=== PATIENT | female | born 1955 | race African-American/Black ===

== ENCOUNTER → 2016-12-31 | Outpatient (CLI) | payer MEDICARE, BC | LOC: OD 15:54 | PROVIDERS: ATTEND Physician Assistant | DX: G43.909 Migraine, unspecified, not intractable, without status migrainosus (principal); G89.29 Other chronic pain | CPT/HCPCS: 72040 ==

== ENCOUNTER → 2017-02-18 | Outpatient (CLI) | payer MEDICARE, BC | LOC: RAD 09:18 | PROVIDERS: ATTEND Physician Assistant | DX: M54.2 Cervicalgia (principal); M54.5 Low back pain; M79.2 Neuralgia and neuritis, unspecified | CPT/HCPCS: 72141; 72146; 72148 ==

== ENCOUNTER → 2018-01-20 | Outpatient (CLI) | payer MEDICARE, BC ==
--- NOTE | 2018-01-20 12:39 | RADIOLOGY REPORT (SQ) ---
EXAM DESCRIPTION: U/S NON-OB PELVIS TV W/O DOP COMPLETED DATE/TIME: 01/20/2018 10:40 am REASON FOR STUDY: ABDOMINAL PAIN R10.31 RIGHT LOWER QUADRANT PAIN COMPARISON: None. TECHNIQUE: Dynamic and static grayscale images acquired of the pelvis via transvaginal approach and recorded on PACS. Additional selected color Doppler and spectral images recorded. LIMITATIONS: None. FINDINGS: UTERUS: Surgically absent. No regional mass detected. RIGHT OVARY: Not seen. LEFT OVARY: Not seen. FREE FLUID: None noted. OTHER: No other significant finding. IMPRESSION: Status post hysterectomy. No pelvic mass. Ovaries not identified. TECHNICAL DOCUMENTATION: JOB ID: [id number] [employer]- All Rights Reserved Reading location - IP/workstation name: [email or web address]
== END ==
LOC: RAD 09:54
PROVIDERS: ATTEND Physician Assistant
DX: R10.31 Right lower quadrant pain (principal); Z90.710 Acquired absence of both cervix and uterus
CPT/HCPCS: 76830

== ENCOUNTER → 2018-09-13 | Outpatient (CLI) | payer MEDICARE, BC ==
--- NOTE | 2018-09-13 16:42 | WOMENS IMAGING REPORT ---
EXAM DESCRIPTION: 3D SCREENING MAMMO BILAT COMPLETED DATE/TIME: 09/13/2018 1:43 pm REASON FOR STUDY: BILATERAL SCREENING MAMMO 3D/Z12.31 Z12.31 ENCNTR SCREEN MAMMOGRAM FOR MALIGNANT NEOPLASM OF PAULA COMPARISON: 09/10/2017 and 09/09/2016. TECHNIQUE: Standard craniocaudal and mediolateral oblique views of each breast recorded using digita l acquisition and breast tomosynthesis. LIMITATIONS: None. FINDINGS: No masses, calcifications or architectural distortion. No areas of suspicion. Read with the assistance of CAD. .[facility] - R2 Cenova Version 1.3 .[facility] - R2 Cenova Version 1.3 .[facility] - R2 Cenova Version 2.4 .[facility] - R2 Cenova Version 2.4 .[facility] - R2 [employer] Version 9.2 IMPRESSION: NORMAL MAMMOGRAM. BIRADS 1. BREAST DENSITY: c. The breasts are heterogeneously dense, which may obscure small masses. BIRAD: 1 NEGATIVE RECOMMENDATION: ROUTINE SCREENING COMMENT: The patient has been notified of the results by letter per SA requirements. Additional no tification policies are in place for contacting patient with suspicious or incomplete findings. Quality ID #[id number]: The [employer] recommends an annual screening mammogram for women aged 40 years or over. This facility utilizes a reminder system to ensure that all patients receive reminder letters, and/or direct phone calls for appointments. This includes reminders for routine scr eening mammograms, diagnostic mammograms, or other Breast Imaging Interventions when appropriate. Th is patient will be placed in the appropriate reminder system. The [employer] (ACR) has developed recommendations for screening MRI of the breast s in certain patient populations, to be used in conjunction with mammography. Breast MRI surveillanc e may be appropriate for women with more than 20% lifetime risk of developing breast cancer as deter mined by genetic testing, significant family history of the disease, or history of mantle radiation f or Hodgkins Disease. ACR Practice Guidelines 2008. DBT Technology DBT is a type of tomographic mammography. With conventional mammography, overlapping breast tissue ma y make lesions difficult to detect, even with good compression. DBT uses an x-ray tube that rotates a round the breast, taking images at different angles. These images are then combined to create thin sl ices of the breast that the radiologist can view as a 3D reconstruction. The [employer] unit can perform full-field digital mammograms (2D imaging); or DBT (3D imaging); or both, in a combination mode that quickly performs both the mammogram and the tomosynthesis scan while the breast is still compressed. PQRS 6045F: Fluoroscopic imaging is not utilized for breast tomosynthesis. TECHNICAL DOCUMENTATION: FINDING NUMBER: (1) ASSESSMENT: (1) JOB ID: [id number] [employer]- All Rights Reserved Reading location - IP/workstation name: [email or web address]
== END ==
LOC: WI 13:16
PROVIDERS: ATTEND Physician Assistant
DX: Z12.31 Encounter for screening mammogram for malignant neoplasm of breast (principal)
CPT/HCPCS: 77063; 77067

== ENCOUNTER 2019-03-25 03:37 | Inpatient (IN) | payer MEDICARE, BC, OTHER ==
--- NOTE | 2019-03-25 03:56 | ER Document Report ---
ED General - General Stated Complaint: ALTERED MENTAL STATUS Time Seen by Provider: 03/25/19 03:45 Primary Care Provider: JAIRON LABOY PA [PHYSICIAN ORGAN INSTALLER] - Follow up as needed Notes: Patient is a 63-year-old female that comes to complaint of altered mental status. states they went to bed at 1 AM, shortly after this patient got up to go to the bathroom and then began to become confused and agitated, she was stating that the "furniture in the living room was missing" although it was not, she started repeating questions and became tearful. She has remained confused since that time although she still is alert and is following all directions. She does report a headache, she states it is on the right side behind her eye and coming around to the back. She was found to have an initial blood pressure of 220/110, she was given Zofran 4 mg and clonidine 0.2 mg by EMS in route. She has a history of hypertension (on lisinopril), denies other medical problems. Has been is at bedside. She is not on a blood thinner. He denies a fall injury, he states she was normal before hand without any sick symptoms including fever. TRAVEL OUTSIDE OF THE [place] IN LAST 30 DAYS: No - Related Data Allergies/Adverse Reactions: codeine Allergy (Verified 03/25/19 04:46) Sulfa (Sulfonamide Antibiotics) Allergy (Verified 03/25/19 04:46) Past Medical History - General Information source: Patient, Relative, Emergency Med Personnel - Social History Smoking Status: Never Smoker Frequency of alcohol use: None Drug Abuse: None Lives with: Family Family History: Reviewed & Not Pertinent - Past Medical History Cardiac Medical History: Reports: Hx Hypertension GI Medical History: Reports: Hx Gastroesophageal Reflux Disease Review of Systems - Review of Systems Constitutional: No symptoms reported EENT: No symptoms reported Cardiovascular: No symptoms reported Respiratory: No symptoms reported Gastrointestinal: No symptoms reported Genitourinary: No symptoms reported Female Genitourinary: No symptoms reported Musculoskeletal: No symptoms reported Skin: No symptoms reported Hematologic/Lymphatic: No symptoms reported Neurological/Psychological: See HPI Physical Exam - Vital signs Vitals: Resp BP Pulse Ox 20 203/180 H 91 L 03/25/19 04:02 03/25/19 04:02 03/25/19 04:02 - Notes Notes: GENERAL: Alert, interacts well. HEAD: Normocephalic, atraumatic. EYES: Pupils equal, round, and reactive to light. Extraocular movements intact. ENT: Oral mucosa moist, tongue midline. Oropharynx unremarkable. Airway patent. NECK: Full range of motion. Supple. Trachea midline. LUNGS: Clear to auscultation bilaterally, no wheezes, rales, or rhonchi. No resp iratory distress. HEART: Regular rate and rhythm. No murmur ABDOMEN: Soft, non-tender. Non-distended. Bowel sounds present in all 4 quadrants. GENITOURINARY: Deferred EXTREMITIES: Moves all 4 extremities spontaneously. No edema, normal radial and dorsalis pedis pulses bilaterally. No cyanosis. BACK: no cervical, thoracic, lumbar midline tenderness. No saddle anesthesia, normal distal neurovascular exam. NEUROLOGICAL: Alert but disoriented. Normal speech. Cranial nerves II through XII grossly intact. PSYCH: Normal affect, normal mood. SKIN: Warm, dry, normal turgor. No rashes or lesions noted. Course - Re-evaluation Re-evalutation: 03/25/19 03:56 Patient's physical exam is unremarkable, she does complain of a headache, she does keep asking the same questions, she fails her orientation questions, otherwise her neurological exam is normal. She is very hypertensive. Concern is for intracranial hemorrhage, possible hypertensive encephalopathy, patient immediately was sent for a CAT scan of the head. clarifies, he states that after they went to bed they had sexual intercourse, afterwards she got up to go to the bathroom and then started acting confused. Blood pressure down trended rapidly with after the clonidine given by EMS, into the 190s, 180s, and now 150s. Patient reevaluated again, still cannot recall year, president, but is not naming family members and following all other directions appropriately. Slightly improved. Headache is almost gone. Patient reevaluated again, blood pressures in the 140s now. Patient is not telling me the president, the year, and is oriented except for details of earlier this evening. Patient has no dementia at baseline per family. CT of the head does not show intracranial hemorrhage, chest x-ray unremarkable. CBC, chemistry unremarkable. Troponin is negative. Urinalysis unremarkable. Clinical presentation is most suggestive of hypertensive emergency with encephalopathy from the hypertension. 03/25/19 05:[address] Morales, he recommends CTA of the head and neck, small evaluation. To see what her blood pressure does next, if it comes back up precipitously she may require Cardene drip and ICU admission. 03/25/19 06:13 Unfortunately after the clonidine patient continued to downtrend, blood pressure reached 108 systolic, she was given 500 cc fluid bolus. 03/25/19 06:57 Patient's blood pressure has now stabilized, she will be admitted to the IMCU. - Vital Signs Vital signs: Temp Pulse Resp BP Pulse Ox 62 13 140/66 H 96 03/25/19 04:27 03/25/19 06:46 03/25/19 06:46 03/25/19 06:46 - Laboratory Result Diagrams: 03/25/19 03:48 03/25/19 03:48 Laboratory results interpreted by me: 03/25/19 03/25/19 03:48 04:08 Glucose 115 H Urine Blood SMALL H Ur Leukocyte Esterase TRACE H Discharge - Discharge Clinical Impression: Hypertensive emergency Altered mental status Qualifiers: Altered mental status type: unspecified Qualified Code(s): R41.82 - Altered mental status, unspecified Headache Qualifiers: Headache type: unspecified Headache chronicity pattern: acute headache Intractability: not intractable Qualified Code(s): R51 - Headache Condition: Serious Disposition: ADMITTED INPATIENT Admitting Provider: Andrew Unit Admitted: [facility] Referrals: JAIRON LABOY PA [PHYSICIAN ORGAN INSTALLER] - Follow up as needed
[2019-03-25 03:58] LABS: ABSOLUTE BASOPHILS # (AUTO) 0.1 10^3/uL (0.0-0.2); ABSOLUTE EOSINOPHILS # (AUTO) 0.2 10^3/uL (0.0-0.6); ABSOLUTE LYMPHOCYTES (AUTO) 2.6 10^3/uL (0.5-4.7); ABSOLUTE MONOCYTES (AUTO) 0.5 10^3/uL (0.1-1.4); BASOPHILS % (AUTO) 1.1 % (0-2); EOSINOPHILS % (AUTO) 3.2 % (0-6); HEMATOCRIT 38.7 % (36.0-47.0); HEMOGLOBIN 13.1 g/dL (12.0-15.5); LYMPHOCYTES % (AUTO) 35.4 % (13-45); MEAN CORPUSCULAR HEMOGLOBIN 30.3 pg (27.0-33.4); MEAN CORPUSCULAR HGB CONC 33.8 g/dL (32.0-36.0); MEAN CORPUSCULAR VOLUME 90 fl (80-97); MONOCYTES % (AUTO) 6.2 % (3-13); PLATELET COUNT 220 10^3/uL (150-450); RED BLOOD COUNT 4.33 10^6/uL (3.72-5.28); SEGMENTED NEUTROPHILS % (AUTO) 54.1 % (42-78); TOTAL CELLS COUNTED % (AUTO) 100 %; WHITE BLOOD COUNT 7.5 10^3/uL (4.0-10.5)
[2019-03-25 04:06] LABS: INTERNATIONAL RATION (INR) 0.87; PROTHROMBIN TIME 12.3 SEC (11.4-15.4)
[2019-03-25 04:19] LABS: ALANINE AMINOTRANSFERASE 25 U/L (9-52); ALBUMIN 4.7 g/dL (3.5-5.0); ALKALINE PHOSPHATASE 113 U/L (38-126); ANION GAP 11 (5-19); ASPARTATE AMINO TRANSFERASE 24 U/L (14-36); BILIRUBIN,DIRECT 0.3 mg/dL (0.0-0.4); BILIRUBIN,TOTAL 0.4 mg/dL (0.2-1.3); BLOOD UREA NITROGEN 9 mg/dL (7-20); CALCIUM 10.1 mg/dL (8.4-10.2); CARBON DIOXIDE 27 mmol/L (22-30); CHLORIDE 106 mmol/L (98-107); GLUCOSE 115 mg/dL (75-110); POTASSIUM 3.9 mmol/L (3.6-5.0); SODIUM 143.9 mmol/L (137-145); TOTAL PROTEIN 7.6 g/dL (6.3-8.2)
--- NOTE | 2019-03-25 04:28 | RADIOLOGY REPORT (SQ) ---
CT head without contrast on 03/25/2019 at 3:53 AM CLINICAL INDICATION: Hypertension, headache, confusion TECHNIQUE: Multiple axial images are obtained throughout the head without the administration of contrast. This exam was performed according to our departmental dose-optimization program, which includes automated exposure control, adjustment of the mA and/or kV according to patient size and/or use of iterative reconstruction technique. Total DLP is 990.56 mGy*cm. COMPARISON: None FINDINGS: There is no hydrocephalus. There is no CT evidence of acute infarct. There is no hemorrhage. There are no abnormal extra-axial fluid collections. There is no mass, mass effect or midline shift. There is an old fracture of the posterior wall of the right maxillary sinus. No acute bony abnormality is noted. IMPRESSION: No acute intracranial abnormality.
--- NOTE | 2019-03-25 04:34 | RADIOLOGY REPORT (SQ) ---
CLINICAL HISTORY: AMS COMPARISON: None. TECHNIQUE: XR CHEST 1 VIEW 03/25/2019 3:50 AM CDT FINDINGS: Cardiac silhouette is normal in size. Lungs are clear without consolidation, atelectasis, mass or edema. There is no pleural effusion. There is no pneumothorax. There are no acute osseous findings. IMPRESSION: Clear lungs.
[2019-03-25 04:41] LABS: APPEARANCE,URINE CLEAR; BILIRUBIN,URINE NEGATIVE (NEGATIVE); COLOR,URINE STRAW; GLUCOSE, URINE NEGATIVE (NEGATIVE); KETONES,URINE NEGATIVE (NEGATIVE); LEUKOCYTE ESTERASE,URINE TRACE (NEGATIVE); NITRITE,URINE NEGATIVE (NEGATIVE); PROTEIN,URINE NEGATIVE (NEGATIVE); URINE SPECIFIC GRAVITY 1.003; UROBILINOGEN,URINE NEGATIVE mg/dL (<2.0)
--- NOTE | 2019-03-25 05:40 | RADIOLOGY REPORT (SQ) ---
CLINICAL HISTORY: AMS COMPARISON: None. TECHNIQUE: CT NECK ANGIOGRAPHY WITHOUT THEN WITH IV CONTRAST, CT HEAD ANGIOGRAPHY WITHOUT THEN WITH IV CONTRAST on 03/25/2019 4:57 AM CDT This exam was performed according to our departmental dose-optimization program, which includes automated exposure control, adjustment of the mA and/or kV according to patient size and/or use of iterative reconstruction technique. MIP reconstructions were generated. Stenoses are calculated by NASCET criteria. FINDINGS: Bilateral common carotid arteries are unremarkable. Internal carotid arteries are diffusely patent. Extracranial vertebral arteries are normal. Intracranial vertebral basilar system is unremarkable. Bilateral posterior cerebral arteries are normal. Anterior and middle cerebral arteries are unremarkable as well. IMPRESSION: Unremarkable CT angiogram.
[2019-03-25] MEDS ORDERED: NORMAL SALINE 1000 ML 500 ML IV ONE (06:14)
[2019-03-25] MEDS ORDERED: ACETAMINOPHEN 325 MG TABLET PO PRN (06:35)
[2019-03-25 08:09] LABS: URINE AMPHETAMINES SCREEN NEGATIVE; URINE BARBITURATES SCREEN NEGATIVE; URINE BENZODIAZEPINES SCREEN NEGATIVE; URINE COCAINE SCREEN NEGATIVE; URINE MARIJUANA (THC) SCREEN NEGATIVE; URINE METHADONE SCREEN NEGATIVE; URINE PHENCYCLIDINE SCREEN NEGATIVE
--- NOTE | 2019-03-25 10:12 | RADIOLOGY REPORT (SQ) ---
EXAM DESCRIPTION: MRI HEAD WITHOUT COMPLETED DATE/TIME: 03/25/2019 9:41 am REASON FOR STUDY: ams/s/ostroke COMPARISON: None CT angio brain 03/25/2019 CT angio neck 03/25/2019 CT brain 03/25/2019 TECHNIQUE: Multiplanar imaging includes non-contrasted T1, T2, FLAIR, and diffusion with ADC map seq uences. Images stored on PACS. LIMITATIONS: None. FINDINGS: ANATOMY: No anomalies. Normal vascular flow voids. Pituitary fossa normal. CSF SPACES: Normal in size and contour. No hemorrhage. CEREBRUM: No MR evidence of acute ischemic change, acute intracranial hemorrhage, mass effect, or mid line shift. Small focus of increased FLAIR/ T2 signal in the left parietal region. Punctate foci of increased FL AIR/ T2 signal in the left frontal lobe. These are nonspecific and could represent minimal small ves yue ischemic change. Demyelinating disease could not entirely be excluded. POSTERIOR FOSSA: No signal alteration. No hemorrhage. No edema, masses or mass effect. Internal josué tory canals, cerebello-pontine angles, mastoids normal. DIFFUSION IMAGING: Negative for acute or sub-acute infarction. ORBITS: No masses. Post left cataract surgery. PARANASAL SINUSES: No fluid levels. Mucosa normal. OTHER: No other significant finding. IMPRESSION: No MR evidence of acute stroke EVIDENCE OF ACUTE STROKE: NO. TECHNICAL DOCUMENTATION: JOB ID: [id number] [employer]- All Rights Reserved Reading location - IP/workstation name: [email or web address]
--- NOTE | 2019-03-25 10:18 | PDOC H&P ---
History of Present Illness Admission Date/PCP: 03/25/19 07:17 HILL PRESTON MD Patient complains of: Elevated blood pressures and altered mental status History of Present Illness: SUSHMA DEE is a 63 year old female Is a 63-year-old female with a history of the hypertension and history of the anxiety disorders and a gastritis of reflux disorder brought to the emergency department by EMS because sudden onset of the confusion's altered mental status and elevated blood pressures with the blood pressure was the 220s systolic range patient was giving the clonidine and patient's blood pressures in the ER also was elevated but then suddenly the blood pressures go up to the 140 range and ER physicians put on IV fluid According to the patient patient having some sexual activity and after patients went to the bathroom and suddenly the patient noticed that the patient was very confused and patient's not feeling well and called the EMS The patient was also confused in the emergency department but after that patient's blood pressure is coming down the patient's back to the alert awake oriented x3 Patient initial CT of the head was negative The patient CT angiogram of the head and neck was also negative With patient's when I saw in the emergency department is alert awake oriented x3 Complaining of a mild headache But denied any other symptoms Patient scheduled for MRI today Past Medical History Cardiac Medical History: Reports: Hypertension GI Medical History: Reports: Gastroesophageal Reflux Disease Psychiatric Medical History: Reports: General Anxiety Disorder Social History Information Source: Patient Lives with: Family Smoking Status: Never Smoker Frequency of Alcohol Use: None Hx Recreational Drug Use: No Hx Prescription Drug Abuse: No - Advance Directive Resuscitation Status: Full Code Family History Family History: Reviewed & Not Pertinent Parental Family History Reviewed: Yes Children Family History Reviewed: Yes Sibling(s) Family History Reviewed.: Yes Medication/Allergy Home Medications: Atorvastatin Calcium [Lipitor 10 mg Tablet] 10 mg PO Q2D 03/25/19 Ergocalciferol (Vitamin D2) [Vitamin D2] 50 mcg PO FR 03/25/19 Levocetirizine Dihydrochloride [Xyzal] 5 mg PO DAILY 03/25/19 Losartan Potassium [Cozaar 50 mg Tablet] 50 mg PO DAILY 03/25/19 Mecobalamin [B-12] 1,000 mcg SL DAILY 03/25/19 Mometasone Furoate [Nasonex] 2 spray NS DAILY 03/25/19 Multivit with Calcium,Iron,Min [Women's Daily Formula] 1 each PO DAILY 03/25/19 [place]-3/Dha/Epa/Fish Oil [Fish Oil [place]-3 EC 1,200 mg] 2 each PO DAILY 03/25/19 Omeprazole 20 mg PO DAILY 03/25/19 Sumatriptan Succinate [Imitrex 50 mg Tablet] 50 mg PO DAILYP PRN 03/25/19 Valacyclovir HCl [Valtrex 500 Mg Tablet] 1,000 mg PO Q12 03/25/19 Allergies/Adverse Reactions: codeine Allergy (Verified 03/25/19 04:46) Sulfa (Sulfonamide Antibiotics) Allergy (Verified 03/25/19 04:46) Review of Systems Constitutional: ABSENT: chills, fever(s), headache(s), weight gain, weight loss Eyes: ABSENT: visual disturbances Ears: ABSENT: hearing changes Cardiovascular: ABSENT: chest pain, dyspnea on exertion, edema, orthropnea, palpitations Respiratory: ABSENT: cough, hemoptysis Gastrointestinal: ABSENT: abdominal pain, constipation, diarrhea, hematemesis, hematochezia, nausea, vomiting Genitourinary: ABSENT: dysuria, hematuria Musculoskeletal: ABSENT: joint swelling Integumentary: ABSENT: rash, wounds Neurological: ABSENT: abnormal gait, abnormal speech, confusion, dizziness, focal weakness, syncope Psychiatric: ABSENT: anxiety, depression, homidical ideation, suicidal ideation Endocrine: ABSENT: cold intolerance, heat intolerance, menstrual abnormalities, polydipsia, polyuria Hematologic/Lymphatic: ABSENT: easy bleeding, easy bruising, lymphadenopathy Physical Exam Vital Signs: Temp Pulse Resp BP Pulse Ox 62 14 135/71 H 100 03/25/19 04:27 03/25/19 08:56 03/25/19 08:56 03/25/19 08:56 Intake & Output 03/24/19 03/25/19 03/26/19 06:59 06:59 06:59 Intake Total 500 Balance 500 Weight 60.6 kg General appearance: PRESENT: no acute distress, well-developed, well-nourished Head exam: PRESENT: atraumatic, normocephalic Eye exam: PRESENT: conjunctiva pink, EOMI, PERRLA. ABSENT: scleral icterus Ear exam: PRESENT: normal external ear exam Mouth exam: PRESENT: moist, tongue midline Neck exam: PRESENT: full ROM. ABSENT: carotid bruit, JVD, lymphadenopathy, thyromegaly Respiratory exam: PRESENT: clear to auscultation ben Cardiovascular exam: PRESENT: RRR. ABSENT: diastolic murmur, rubs, systolic murmur Vascular exam: PRESENT: normal capillary refill GI/Abdominal exam: PRESENT: normal bowel sounds, soft. ABSENT: distended, guarding, mass, organolmegaly, rebound, tenderness Rectal exam: PRESENT: deferred Neurological exam: PRESENT: alert, awake, oriented to person, oriented to place, oriented to time, oriented to situation, reflexes normal, CN II-XII grossly intact, normal gait. ABSENT: motor sensory deficit Psychiatric exam: PRESENT: appropriate affect, normal mood. ABSENT: homicidal ideation, suicidal ideation Skin exam: PRESENT: dry, intact, warm. ABSENT: cyanosis, rash Results Laboratory Results: 03/25/19 03:48 03/25/19 03:48 03/25/19 03/25/19 03/25/19 03:48 03:48 04:08 WBC 7.5 RBC 4.33 Hgb 13.1 Hct 38.7 MCV 90 MCH 30.3 MCHC 33.8 RDW 14.0 Plt Count 220 Seg Neutrophils % 54.1 Lymphocytes % 35.4 Monocytes % 6.2 Eosinophils % 3.2 Basophils % 1.1 Absolute Neutrophils 4.0 Absolute Lymphocytes 2.6 Absolute Monocytes 0.5 Absolute Eosinophils 0.2 Absolute Basophils 0.1 Sodium 143.9 Potassium 3.9 Chloride 106 Carbon Dioxide 27 Anion Gap 11 BUN 9 Creatinine 0.73 Est GFR ( Amer) > 60 Est GFR (Non-Af Amer) > 60 Glucose 115 H Calcium 10.1 Total Bilirubin 0.4 AST 24 ALT 25 Alkaline Phosphatase 113 Total Protein 7.6 Albumin 4.7 Urine Color STRAW Urine Appearance CLEAR Urine pH 7.0 Ur Specific [place] 1.003 Urine Protein NEGATIVE Urine Glucose (UA) NEGATIVE Urine Ketones NEGATIVE Urine Blood SMALL H Urine Nitrite NEGATIVE Ur Leukocyte Esterase TRACE H Urine WBC (Auto) 1 Urine RBC (Auto) 1 03/25/19 03/25/19 03:48 03:48 Creatine Kinase 69 Troponin I < 0.012 Impressions: Head CT 03/25/19 00:00 IMPRESSION: No acute intracranial abnormality. Chest X-Ray 03/25/19 03:50 IMPRESSION: Clear lungs. Head CTA 03/25/19 04:57 IMPRESSION: Unremarkable CT angiogram. Neck CTA 03/25/19 04:57 IMPRESSION: Unremarkable CT angiogram. Assessment & Plan - Diagnosis (1) Altered mental status Qualifiers: Altered mental status type: unspecified Qualified Code(s): R41.82 - Altered mental status, unspecified Is this a current diagnosis for this admission?: Yes Plan: Patient's unclear etiology could be possible TIA kind of her symptoms We will get the MRI of the head Continues to neuro check Start the patient on aspirin (2) Generalized anxiety disorder Is this a current diagnosis for this admission?: Yes (3) Headache Qualifiers: Headache type: unspecified Headache chronicity pattern: acute headache Intractability: not intractable Qualified Code(s): R51 - Headache Is this a current diagnosis for this admission?: Yes Plan: We will get the MRI of the head today Initial CT scan of the head and CT angiogram is all negative (4) Hypertensive emergency Is this a current diagnosis for this admission?: Yes Plan: Currently all stable We will continues to maintain the IV fluid to keep her blood pressures around 1 40-1 50 range for the next 24 hours until the MRIs result - Time Time Spent: 30 to 50 Minutes Medications reviewed and adjusted accordingly: Yes Anticipated discharge: Home Within: within 24 hours - Inpatient Certification Based on my medical assessment, after consideration of the patient's comorbidities, presenting symptoms, or acuity I expect that the services needed warrant INPATIENT care.: Yes I certify that my determination is in accordance with my understanding of Medicare's requirements for reasonable and necessary INPATIENT services [42 CFR 412.3e].: Yes Medical Necessity: Significant Comorbidiites Make Outpatient Treatment Too Risky, Need Close Monitoring Due to Risk of Patient Decompensation, Need For IV Fluids Post Hospital Care: D/C Branch Operation Evaluation Manager Documentation - Plan Summary Plan Summary: Discussed with the patient and her in the hospital in the emergency departments See an MD orders
[2019-03-25] MEDS: ENOXAPARIN SODIUM INJ 40 MG/0.4 ML DISP.SYRIN SUBCUT SCH (11:17)
[2019-03-25] MEDS ORDERED: ATORVASTATIN CALCIUM 10 MG TABLET PO SCH (11:45)
[2019-03-25] MEDS ORDERED: (PENDING PHARMACY ID) (Ergocalciferol (Vitamin D2) [Vitamin D2] 50,000 UNIT) PO SCH (11:45)
[2019-03-25] MEDS: NORMAL SALINE 1000 ML 1,000 ML IV PRN (12:08)
[2019-03-25] MEDS ORDERED: PANTOPRAZOLE SODIUM 20 MG TABLET.DR PO SCH (13:00)
[2019-03-25] MEDS ORDERED: PANTOPRAZOLE SODIUM 40 MG TABLET.DR PO ONE (13:30)
[2019-03-25 13:39] LABS: CREATINE KINASE MB 0.87 ng/mL (<4.55)
[2019-03-25 13:42] LABS: TROPONIN I 0.034 ng/mL
[2019-03-25 19:56] LABS: CREATINE KINASE MB 0.42 ng/mL (<4.55)
[2019-03-25 20:01] LABS: TROPONIN I < 0.012 ng/mL
[2019-03-25] MEDS: VALACYCLOVIR HCL 500 MG TABLET PO SCH (21:57)
[2019-03-25] MEDS: SUMATRIPTAN SUCCINATE 50 MG TABLET PO PRN (21:59)
--- NOTE | 2019-03-25 22:35 | EKG REPORT ---
SEVERITY:- ABNORMAL ECG - SINUS RHYTHM NONSPECIFIC T ABNORMALITIES, LATERAL LEADS : Confirmed by: Shania Cade MD 25-Mar-2019 22:35:17
[2019-03-26] MEDS: NORMAL SALINE 1000 ML 1,000 ML IV PRN ×2 (00:38→13:33)
[2019-03-26] MEDS ORDERED: PANTOPRAZOLE SODIUM 40 MG TABLET.DR PO SCH (06:00)
[2019-03-26 06:38] LABS: ABSOLUTE EOSINOPHILS # (AUTO) 0.2 10^3/uL (0.0-0.6); ABSOLUTE LYMPHOCYTES (AUTO) 2.1 10^3/uL (0.5-4.7); ABSOLUTE MONOCYTES (AUTO) 0.3 10^3/uL (0.1-1.4); ABSOLUTE NEUT (AUTO) 2.8 10^3/uL (1.7-8.2); BASOPHILS % (AUTO) 0.7 % (0-2); EOSINOPHILS % (AUTO) 3.6 % (0-6); HEMATOCRIT 34.3 % (36.0-47.0); HEMOGLOBIN 11.5 g/dL (12.0-15.5); LYMPHOCYTES % (AUTO) 38.3 % (13-45); MEAN CORPUSCULAR HEMOGLOBIN 30.1 pg (27.0-33.4); MEAN CORPUSCULAR HGB CONC 33.6 g/dL (32.0-36.0); MEAN CORPUSCULAR VOLUME 90 fl (80-97); MONOCYTES % (AUTO) 6.3 % (3-13); PLATELET COUNT 173 10^3/uL (150-450); RED BLOOD COUNT 3.82 10^6/uL (3.72-5.28); SEGMENTED NEUTROPHILS % (AUTO) 51.1 % (42-78); TOTAL CELLS COUNTED % (AUTO) 100 %; WHITE BLOOD COUNT 5.5 10^3/uL (4.0-10.5)
[2019-03-26 07:01] LABS: ALANINE AMINOTRANSFERASE 23 U/L (9-52); ALBUMIN 3.2 g/dL (3.5-5.0); ALKALINE PHOSPHATASE 68 U/L (38-126); ANION GAP 7 (5-19); ASPARTATE AMINO TRANSFERASE 17 U/L (14-36); BILIRUBIN,DIRECT 0.2 mg/dL (0.0-0.4); BILIRUBIN,TOTAL 0.5 mg/dL (0.2-1.3); BLOOD UREA NITROGEN 7 mg/dL (7-20); CALCIUM 8.9 mg/dL (8.4-10.2); CARBON DIOXIDE 27 mmol/L (22-30); CHLORIDE 109 mmol/L (98-107); GLUCOSE 99 mg/dL (75-110); POTASSIUM 3.8 mmol/L (3.6-5.0); SODIUM 143.3 mmol/L (137-145); TOTAL PROTEIN 5.7 g/dL (6.3-8.2)
[2019-03-26] MEDS: SUMATRIPTAN SUCCINATE 50 MG TABLET PO PRN (09:46)
[2019-03-26] MEDS: VALACYCLOVIR HCL 500 MG TABLET PO SCH (09:47)
[2019-03-26] MEDS ORDERED: FISH OIL PO SCH (10:00)
[2019-03-26] MEDS ORDERED: FLUTICASONE NASAL SPRAY 50 MCG/SPRY 120 SPRAY/16 GM NASL SCH (10:00)
[2019-03-26] MEDS ORDERED: EPA PO SCH (10:00)
[2019-03-26] MEDS ORDERED: DHA PO SCH (10:00)
[2019-03-26] MEDS ORDERED: CYANOCOBALAMIN (VITAMIN B-12) 1,000 MCG TABLET PO SCH (10:00)
[2019-03-26] MEDS ORDERED: MULTIVITAMIN TABLET PO SCH (10:00)
[2019-03-26] MEDS ORDERED: CETIRIZINE 5 MG TABLET PO SCH (10:00)
[2019-03-26] MEDS ORDERED: OMEGA-3 ACID ETHYL ESTERS 1 GM CAPSULE PO SCH (10:00)
[2019-03-26] MEDS ORDERED: (PENDING PHARMACY ID) (Mometasone Furoate [Nasonex] 2 SPRAY) NS SCH (10:00)
[2019-03-26] MEDS ORDERED: MULTIVIT WITH CALCIUM IRON MIN PO SCH (10:00)
[2019-03-26] MEDS ORDERED: MECOBALAMIN 1000 MCG SL SCH (10:00)
[2019-03-26] MEDS ORDERED: OMEGA PO SCH (10:00)
[2019-03-26] MEDS: ENOXAPARIN SODIUM INJ 40 MG/0.4 ML DISP.SYRIN SUBCUT SCH (11:09)
[2019-03-26 15:57] VITALS: BP 118/60
--- NOTE | 2019-03-26 16:11 | PDOC DISCHARGE SUMMARY ---
General - Admit/Disc Date/PCP Admission Date/Primary Care Provider: 03/25/19 07:17 HILL PRESTON MD Discharge Date: 03/26/19 - Discharge Diagnosis (1) Hypertensive encephalopathy syndrome Is this a current diagnosis for this admission?: Yes Summary: This could be the cause of her confusion and related to sexual activity. (2) HTN (hypertension) Is this a current diagnosis for this admission?: Yes Summary: She will continue on all preadmission medication management. (3) Generalized anxiety disorder Is this a current diagnosis for this admission?: Yes Summary: Continue on all preadmission medication management. - Additional Information Resuscitation Status: Full Code Discharge Diet: Cardiac Discharge Activity: Activity As Tolerated, Slowly Increase Activity Home Medications: Atorvastatin Calcium [Lipitor 10 mg Tablet] 10 mg PO Q2D 03/25/19 Ergocalciferol (Vitamin D2) [Vitamin D2] 50,000 unit PO FR 03/25/19 Levocetirizine Dihydrochloride [Xyzal] 5 mg PO DAILY 03/25/19 Losartan Potassium [Cozaar 50 mg Tablet] 50 mg PO DAILY 03/25/19 Mecobalamin [B-12] 1,000 mcg SL DAILY 03/25/19 Mometasone Furoate [Nasonex] 2 spray NS DAILY 03/25/19 Multivit with Calcium,Iron,Min [Women's Daily Formula] 1 each PO DAILY 03/25/19 Lyndon-3/Dha/Epa/Fish Oil [Fish Oil Lyndon-3 EC 1,200 mg] 2 each PO DAILY 03/25/19 Omeprazole 20 mg PO DAILY 03/25/19 Sumatriptan Succinate [Imitrex 50 mg Tablet] 50 mg PO DAILYP PRN 03/25/19 Valacyclovir HCl [Valtrex 500 mg Tablet] 1,000 mg PO Q12 03/25/19 History of Present Illness History of Present Illness: SUSHMA DEE is a 63 year old female Is a 63-year-old female with a history of the hypertension and history of the anxiety disorders and a gastritis of reflux disorder brought to the emergency department by EMS because sudden onset of the confusion's altered mental status and elevated blood pressures with the blood pressure was the 220s systolic range patient was giving the clonidine and patient's blood pressures in the ER also was elevated but then suddenly the blood pressures go up to the 140 range and ER physicians put on IV fluid According to the patient patient having some sexual activity and after patients went to the bathroom and suddenly the patient noticed that the patient was very confused and patient's not feeling well and called the EMS The patient was also confused in the emergency department but after that patient's blood pressure is coming down the patient's back to the alert awake oriented x3 Patient initial CT of the head was negative The patient CT angiogram of the head and neck was also negative With patient's when I saw in the emergency department is alert awake oriented x3 Complaining of a mild headache But denied any other symptoms Patient scheduled for MRI today Hospital Course Hospital Course: Her confusion have greatly resolved. Her neuro check have been normal since arrival on IMCU floor. She denied any chest pain, difficulty with breathing, nausea, vomiting, abdominal pain, flank pain, hematuria or dysuria. Patient insisted upon d/c home today and she will follow up with Dr. Preston s instructed. Physical Exam Vital Signs: Temp Pulse Resp BP Pulse Ox 97.9 F 53 L 17 118/60 100 03/26/19 15:54 03/26/19 15:54 03/26/19 15:54 03/26/19 15:54 03/26/19 15:54 Intake & Output 03/25/19 03/26/19 03/27/19 06:59 06:59 06:59 Intake Total 500 2220 1205 Output Total 0 Balance 500 2220 1205 Weight 60.6 kg 58.6 kg General appearance: PRESENT: no acute distress, well-developed, well-nourished Head exam: PRESENT: atraumatic, normocephalic Eye exam: PRESENT: conjunctiva pink, EOMI, PERRLA. ABSENT: scleral icterus Ear exam: PRESENT: normal external ear exam Mouth exam: PRESENT: moist Neck exam: PRESENT: full ROM. ABSENT: carotid bruit, JVD, lymphadenopathy, thyromegaly Respiratory exam: PRESENT: chest wall tenderness Cardiovascular exam: PRESENT: RRR. ABSENT: diastolic murmur, rubs, systolic murmur Vascular exam: PRESENT: normal capillary refill. ABSENT: pallor GI/Abdominal exam: PRESENT: normal bowel sounds, soft. ABSENT: distended, guarding, mass, organolmegaly, rebound, tenderness Extremities exam: ABSENT: pedal edema Musculoskeletal exam: PRESENT: normal inspection Neurological exam: PRESENT: alert, awake, oriented to person, oriented to place, oriented to time, oriented to situation, CN II-XII grossly intact. ABSENT: motor sensory deficit Psychiatric exam: PRESENT: appropriate affect, normal mood. ABSENT: homicidal ideation, suicidal ideation Skin exam: PRESENT: dry, warm Results Laboratory Results: 03/26/19 06:07 03/26/19 06:07 03/26/19 03/26/19 03/26/19 06:07 06:07 06:07 WBC 5.5 RBC 3.82 Hgb 11.5 L Hct 34.3 L MCV 90 MCH 30.1 MCHC 33.6 RDW 14.0 Plt Count 173 Seg Neutrophils % 51.1 Lymphocytes % 38.3 Monocytes % 6.3 Eosinophils % 3.6 Basophils % 0.7 Absolute Neutrophils 2.8 Absolute Lymphocytes 2.1 Absolute Monocytes 0.3 Absolute Eosinophils 0.2 Absolute Basophils 0.0 Sodium 143.3 Potassium 3.8 Chloride 109 H Carbon Dioxide 27 Anion Gap 7 BUN 7 Creatinine 0.75 Est GFR ( Amer) > 60 Est GFR (Non-Af Amer) > 60 Glucose 99 Calcium 8.9 Magnesium 1.6 Total Bilirubin 0.5 AST 17 ALT 23 Alkaline Phosphatase 68 Ammonia < 8.7 L Total Protein 5.7 L Albumin 3.2 L TSH 03/26/19 06:07 WBC RBC Hgb Hct MCV MCH MCHC RDW Plt Count Seg Neutrophils % Lymphocytes % Monocytes % Eosinophils % Basophils % Absolute Neutrophils Absolute Lymphocytes Absolute Monocytes Absolute Eosinophils Absolute Basophils Sodium Potassium Chloride Carbon Dioxide Anion Gap BUN Creatinine Est GFR ( Amer) Est GFR (Non-Af Amer) Glucose Calcium Magnesium Total Bilirubin AST ALT Alkaline Phosphatase Ammonia Total Protein Albumin TSH 2.69 03/25/19 03/25/19 03/25/19 03:48 03:48 12:57 Creatine Kinase 69 80 CK-MB (CK-2) Troponin I < 0.012 03/25/19 03/25/19 03/25/19 12:57 19:02 19:02 Creatine Kinase 26 L CK-MB (CK-2) 0.87 0.42 Troponin I 0.034 < 0.012 Impressions: Head CT 03/25/19 00:00 IMPRESSION: No acute intracranial abnormality. Head MRI 03/25/19 00:00 IMPRESSION: No MR evidence of acute stroke EVIDENCE OF ACUTE STROKE: NO. Chest X-Ray 03/25/19 03:50 IMPRESSION: Clear lungs. Head CTA 03/25/19 04:57 IMPRESSION: Unremarkable CT angiogram. Neck CTA 03/25/19 04:57 IMPRESSION: Unremarkable CT angiogram. Qualifiers - * PATIENT BEING DISCHARGED WITH ANY OF THE FOLLOWING DIAGNOSIS: No Acute Heart Failure Is this a Heart Failure Patient?: No Plan Discharge Plan: Patient insisted upon d/c home today. Her blood pressure have been satisfactory since arrival on the intermediate care unit. he will follow up with Dr. Preston as instructed upon discharge.
== END 2019-03-26 16:26 | disposition home or self-care (01) | DRG 79 ==
LOC: ER 03:37 → EH 07:17 → 3W 09:50
PROVIDERS: ADMIT Family Medicine; ATTEND Family Medicine
DX: I67.4 Hypertensive encephalopathy (principal); K21.9 Gastro-esophageal reflux disease without esophagitis; F41.1 Generalized anxiety disorder; I10 Essential (primary) hypertension; Z88.2 Allergy status to sulfonamides; Z88.5 Allergy status to narcotic agent; Z79.899 Other long term (current) drug therapy
CPT/HCPCS: 36415; 70450; 70496; 70498; 70551; 71045; 80053; 80307; 81001; 82140; 82550; 82553; 83735; 84443; 84484; 85025; 85610; 85730; 87040; 87086; 93005; 93010; 99285; J3490; J7030

== ENCOUNTER → 2019-09-14 | Outpatient (CLI) | payer MEDICARE, BC ==
--- NOTE | 2019-09-14 10:35 | WOMENS IMAGING REPORT ---
EXAM DESCRIPTION: 3D SCREENING MAMMO BILAT COMPLETED DATE/TIME: 09/14/2019 9:11 am REASON FOR STUDY: Z12.31 ENCOUNTER FOR SCREENING MAMMOGRAM FOR MALIGNANT NEOPLASM OF BREAST Z12.31 ENCNTR SCREEN MAMMOGRAM FOR MALIGNANT NEOPLASM OF PAULA COMPARISON: 2016 and subsequent. EXAM PARAMETERS: Views: Standard craniocaudal and mediolateral oblique views of each breast recorded using digital acquisition and breast tomosynthesis. Read with the assistance of CAD. .[facility] - [email or web address] Credit Underwriter Version 9.2 LIMITATIONS: None. FINDINGS: No suspicious masses, suspicious calcifications or architectural distortion. No areas of c oncern. IMPRESSION: NEGATIVE MAMMOGRAM. BIRADS 1. BREAST DENSITY: c. The breasts are heterogeneously dense, which may obscure small masses. BIRAD: ASSESSMENT: 1 NEGATIVE RECOMMENDATION: ROUTINE SCREENING COMMENT: The patient has been notified of the results by letter per MQSA requirements. Additional no tification policies are in place for contacting patient with suspicious or incomplete findings. Quality ID #225: The [employer] recommends an annual screening mammogram for women aged 40 years or over. This facility utilizes a reminder system to ensure that all patients receive reminder letters, and/or direct phone calls for appointments. This includes reminders for routine scr eening mammograms, diagnostic mammograms, or other Breast Imaging Interventions when appropriate. Th is patient will be placed in the appropriate reminder system. TECHNICAL DOCUMENTATION: FINDING NUMBER: (1) ASSESSMENT: (1) JOB ID: [id number] [employer]- All Rights Reserved Reading location - IP/workstation name: [email or web address]
== END ==
LOC: WI 08:45
PROVIDERS: ATTEND Family Medicine
DX: Z12.31 Encounter for screening mammogram for malignant neoplasm of breast (principal)
CPT/HCPCS: 77063; 77067

== ENCOUNTER → 2020-01-04 | Outpatient (CLI) | payer MEDICARE, BC ==
--- NOTE | 2020-01-04 14:40 | RADIOLOGY REPORT (SQ) ---
EXAM DESCRIPTION: HIP RIGHT AP/LATERAL COMPLETED DATE/TIME: 01/04/2020 2:26 pm REASON FOR STUDY: RIGHT HIP PAIN M25.551 PAIN IN RIGHT HIP COMPARISON: 01/24/2016 NUMBER OF VIEWS: Two views. TECHNIQUE: AP and frog-leg view of the right hip. LIMITATIONS: None. FINDINGS: MINERALIZATION: Normal. RIGHT HIP: No fracture or dislocation. No worrisome bone lesions. No contour deformity. No joint sp garrett narrowing. OPPOSITE HIP: No fracture or dislocation. No worrisome bone lesions. SOFT TISSUES: No findings. OTHER: No other significant finding. IMPRESSION: NEGATIVE STUDY OF THE RIGHT HIP. NO EXPLANATION FOR PAIN. TECHNICAL DOCUMENTATION: JOB ID: [id number] 2010 [employer] All Rights Reserved Reading location - IP/workstation name: [email or web address]
== END ==
LOC: OD 14:15
PROVIDERS: ATTEND Physician Assistant
DX: M25.551 Pain in right hip (principal)

== ENCOUNTER → 2020-01-26 | Outpatient (CLI) | payer MEDICARE, BC ==
--- NOTE | 2020-01-26 15:36 | RADIOLOGY REPORT (SQ) ---
EXAM DESCRIPTION: CT ABD/PELVIS WITH IV ORAL COMPLETED DATE/TIME: 01/26/2020 2:58 pm REASON FOR STUDY: GENERALIZED ABD PAIN (R10.84), NAUSEA (R11.0), CONSTIPATION (K59.00) R10.84 GENER ALIZED ABDOMINAL PAIN R11.0 NAUSEA K59.00 CONSTIPATION, UNSPECIFIED COMPARISON: None. TECHNIQUE: CT scan of the abdomen and pelvis performed with intravenous and oral contrast using zelda sachi scanning technique with dynamic intravenous contrast injection. Images reviewed with lung, soft t issue, and bone windows. Reconstructed coronal and sagittal MPR images reviewed. Delayed images for e valuation of the urinary system also acquired. All images stored on PACS. All CT scanners at this facility use dose modulation, iterative reconstruction, and/or weight based d osing when appropriate to reduce radiation dose to as low as reasonably achievable (ALARA). [facility]: Dose Right [facility]: CareDose [facility]: Dose Right [facility]: Teradose 4D [facility]: Apprity CONTRAST TYPE AND DOSE: contrast/concentration: Isovue 350.00 mg/ml; Total Contrast Delivered: 62.0 ml; Total Saline Delivered: 65.0 ml RENAL FUNCTION: GFR > 60. RADIATION DOSE: CT Rad equipment meets quality standard of care and radiation dose reduction techniq ues were employed. CTDIvol: 3.3 - 3.3 mGy. DLP: 316 mGy-cm. . LIMITATIONS: None. FINDINGS: LOWER CHEST: No significant findings. No nodules or infiltrates. LIVER: There are 2 lesions with enhancement pattern typical of hemangiomas, the largest in the right lobe approximately 3.2 x 7.8 cm. SPLEEN: Normal size. No focal lesions. PANCREAS: No masses. No significant calcifications. No adjacent inflammation or peripancreatic fluid collections. Pancreatic duct not dilated. GALLBLADDER: No identified stones by CT criteria. No inflammatory changes to suggest cholecystitis. ADRENAL GLANDS: No significant masses or asymmetry. RIGHT KIDNEY AND URETER: No solid masses. No significant calcifications. No hydronephrosis or hyd roureter. LEFT KIDNEY AND URETER: No solid masses. No significant calcifications. No hydronephrosis or hydr oureter. AORTA AND VESSELS: No aneurysm. No dissection. Renal arteries, SMA, celiac without stenosis. RETROPERITONEUM: No retroperitoneal adenopathy, hemorrhage or masses. BOWEL AND PERITONEAL CAVITY: No obstruction. No visualized masses. No free fluid. No inflammatory ch anges or thickening of bowel wall. APPENDIX: Surgically absent. PELVIS: No significant masses. Normal bladder. No free fluid. ABDOMINAL WALL: No masses. No hernias. BONES: No significant or acute findings. OTHER: No other significant finding. IMPRESSION: NO SIGNIFICANT OR ACUTE FINDINGS IN THE ABDOMEN OR PELVIS. TECHNICAL DOCUMENTATION: JOB ID: [id number] Quality ID # [id number]: Final reports with documentation of one or more dose reduction techniques (e.g., Au tomated exposure control, adjustment of the mA and/or kV according to patient size, use of iterative reconstruction technique) 2010 [employer]- All Rights Reserved Reading location - IP/workstation name: [email or web address]
== END ==
LOC: RAD 13:52
PROVIDERS: ATTEND Family Medicine
DX: K59.00 Constipation, unspecified (principal); R10.84 Generalized abdominal pain; R11.0 Nausea
CPT/HCPCS: 74177; 82565

== ENCOUNTER → 2020-09-10 | Outpatient (CLI) | payer MEDICARE, BC ==
--- NOTE | 2020-09-10 15:22 | WOMENS IMAGING REPORT ---
EXAM DESCRIPTION: 3D SCREENING MAMMO BILAT IMAGES COMPLETED DATE/TIME: 09/10/2020 2:45 pm REASON FOR STUDY: Z12.31 ENCOUNTER FOR SCREENING MAMMOGRAM FOR MALIGNANT NEOPLASM OF BREAST Z12.31 ENCNTR SCREEN MAMMOGRAM FOR MALIGNANT NEOPLASM OF PAULA COMPARISON: Digital tomosynthesis bilateral screening mammograms dated 09/14/2019, 09/13/2018 and . EXAM PARAMETERS: Views: Standard craniocaudal and mediolateral oblique views of each breast recorded using digital acquisition and breast tomosynthesis. Read with the assistance of CAD. .[facility] - [employer] Version 9.2 LIMITATIONS: None. FINDINGS: No suspicious masses, suspicious calcifications or architectural distortion. No areas of c oncern. IMPRESSION: NEGATIVE MAMMOGRAM. BIRADS 1. BREAST DENSITY: c. The breasts are heterogeneously dense, which may obscure small masses. BIRAD: ASSESSMENT: 1 NEGATIVE RECOMMENDATION: 1. ROUTINE SCREENING COMMENT: The patient has been notified of the results by letter per [place] requirements. Additional no tification policies are in place for contacting patient with suspicious or incomplete findings. Quality ID #225: The [employer] recommends an annual screening mammogram for women aged 40 years or over. This facility utilizes a reminder system to ensure that all patients receive reminder letters, and/or direct phone calls for appointments. This includes reminders for routine scr eening mammograms, diagnostic mammograms, or other Breast Imaging Interventions when appropriate. Th is patient will be placed in the appropriate reminder system. TECHNICAL DOCUMENTATION: FINDING NUMBER: (1) ASSESSMENT: (1) JOB ID: [id number] 2010 [employer]- All Rights Reserved Reading location - IP/workstation name: [email or web address]
== END ==
LOC: WI 14:21
PROVIDERS: ATTEND Family Medicine
DX: Z12.31 Encounter for screening mammogram for malignant neoplasm of breast (principal)
CPT/HCPCS: 77063; 77067